=== PATIENT | male | born 1980 | race Caucasian/White ===

== ENCOUNTER 2017-03-26 14:03 | Observation (INO) | payer BC ==
[~2017-03-26] VITALS: Ht 170.2 cm; Wt 95.3 kg
[~2017-03-26 14:03] MED LIST: AVELOX400 MG OR; BACTRIM DS1 TAB PO; ERYTHROMYCIN O3.5 GM OD; IMODIUM A-D2 MG OR; LORTAB 5-325 MG1 TAB PO; LORTAB 5/3255 MG PO; NAPROSYN500 MG PO; NASONEX50 MCG/AC; PEPTO-BISM524 MG/30 OR; SULFACET SOD10 % OS
--- NOTE | 2017-03-26 14:16 | NUR ---
PT STATES HAS BEEN HAVING RIGHT SIDED CHEST PAIN UNDER RIGHT BREAST, MORE SO WITH DEEP BREATHING.
[2017-03-26 15:06] LABS: HEMATOCRIT 41.4 % (39.0-50.0); IMMATURE GRANULOCYTES 0.4 % (0.0-1.0); MEAN CELL VOLUME 84.3 fL CALC (80.0-100.0); MEAN CORPUSCULAR HGB 28.5 pG CALC (26.0-32.0); MEAN CORPUSCULAR HGB CONC 33.8 g/L CALC (32.0-36.0); NEUT# 18.62 thou/uL (1.82-7.42); RED BLOOD COUNT 4.91 mill/uL (4.70-6.10); RED CELL DISTRI WIDTH 12.2 % (11.5-15.5)
--- NOTE | 2017-03-26 15:10 | NUR ---
ADVISED OF CONTINUED WAIT TIME FOR LAB RESULTS. PT RESTING QUIETLY WITH FAMILY AT BEDSIDE.
[2017-03-26 15:27] LABS: ALBUMIN 4.4 g/dL (3.2-5.0); ALKALINE PHOSPHATASE 87 u/l (38-126); ANION GAP 17 (6-22 (CALC)); BILIRUBIN, TOTAL 0.6 mg/dL (0.0-1.4); BUN 10 mg/dL (9-20); BUN/CREATININE RATIO 17 (12-20 (CALC)); CALCIUM 9.5 mg/dL (8.4-10.2); CARBON DIOXIDE 29 mmol/l (22-30); CHLORIDE 97 mmol/l (95-108); CREATININE 0.6 mg/dL (0.7-1.3); GFR > 60 ML/MIN (>=60 (CALC)); GFR FOR AFR.AMER. > 60 ML/MIN (>=60 (CALC)); GLUCOSE 294 mg/dL (75-110); POTASSIUM 3.8 mmol/l (3.5-5.1); SGOT/AST 14 u/l (17-59); SGPT/ALT 28 u/l (21-72); SODIUM 139 mmol/l (137-146); TOTAL PROTEIN 9.3 g/dL (6.3-8.2)
[2017-03-26 15:37] LABS: MYOGLOBIN 15 ng/mL (0 - 121)
--- NOTE | 2017-03-26 16:01 | NUR ---
DR. JARAMILLO SPEAKING TO PT ABOUT POSSIBLE ADMISSION, DUE TO WBC OF 24.5, ORDERS FOR CTA OF CHEST TO CHECK FOR PE. PT TO CT SCAN PER STRETCHER.
--- NOTE | 2017-03-26 17:33 | NUR ---
PT SITTING UP IN BED, DENIES ANY SEVERE PAIN IN RIGHT RIB AREA, STATES A MAYBE 2-3 WITH DEEP BREATHING. ADVISED OF FOOD TRAY ORDERED.
--- NOTE | 2017-03-26 18:20 | NUR ---
PT REPORT CALLED TO [facility] CONTINUATION OF CARE. PT PLACED IN W/C AND TRANSPORTED UP TO ROOM ON MED SURG WITH TELEMENTRY
[2017-03-26 18:39] VITALS: BP 128/82
--- NOTE | 2017-03-26 18:40 | NUR ---
PT ARRIVED TO FLOOR VIA WHEELCHAIR ACCOMPANIED BY [facility]. PT AMBULATES INDEPENDENTLY. SOB W/ EXERTION NOTED. NON-PRODUCTIVE COUGH NOTED. PLAN OF CARE DISCUSSED. REPORTING OF CONCERNS ENCOURAGED. PT ORIENTED TO ROOM AND EQUIPMENT. CALL LIGHT REVIEWED AND IN REACH. PT STATES UNDERSTANDING.
[2017-03-26 20:07] VITALS: BP 118/81
--- NOTE | 2017-03-26 22:00 | NUR ---
RESTING IN SEMIFOWELRS WITH EYES CLOSED, RESPIRATIONS EVEN AND UNLABORED. IV FLUIDS INFUSING TO RAC WITH NO COMPLICATIONS. CALL LIGHT IN REACH.
[2017-03-26 23:32] VITALS: BP 112/73
--- NOTE | 2017-03-27 00:20 | NUR ---
RESTING IN SEMIFOWELRS WITH EYES CLOSED, RESPIRATIONS EVEN AND UNLABORED. IV FLUIDS INFUSING TO RAC WITH NO COMPLICATIONS. CALL LIGHT IN REACH.
--- NOTE | 2017-03-27 00:52 | NUR ---
SITTING ON SIDE OF BED, C/O PAIN TO RIGHT SIDE OF CHEST 5/10, "BETTER THAN IT WAS WHEN I CAME IN", MEDICATED WITH TYLENOL 650MG PO. ENCOURAGED TO USE CALL LIGHT FOR ASSISTANCE.
[2017-03-27 03:47] VITALS: BP 103/65
--- NOTE | 2017-03-27 05:20 | NUR ---
MORNING BLOOD WORK DRAWN BY CAR PAINTER, PT TOLERATED WELL. RESPIRATIONS EVEN AND UNLABORED.
[2017-03-27 05:59] LABS: HEMATOCRIT 35.4 % (39.0-50.0); IMMATURE GRANULOCYTES 0.4 % (0.0-1.0); MEAN CELL VOLUME 85.3 fL CALC (80.0-100.0); MEAN CORPUSCULAR HGB 28.9 pG CALC (26.0-32.0); MEAN CORPUSCULAR HGB CONC 33.9 g/L CALC (32.0-36.0); NEUT# 10.5 thou/uL (1.82-7.42); RED BLOOD COUNT 4.15 mill/uL (4.70-6.10); RED CELL DISTRI WIDTH 12.1 % (11.5-15.5)
[2017-03-27 06:19] LABS: ANION GAP 14 (6-22 (CALC)); BUN 8 mg/dL (9-20); BUN/CREATININE RATIO 15 (12-20 (CALC)); CALCIUM 8.7 mg/dL (8.4-10.2); CALCULATED LDLCHOLESTEROL 92 mg/dL (62-129 (CALC)); CARBON DIOXIDE 28 mmol/l (22-30); CHLORIDE 100 mmol/l (95-108); CREATININE 0.5 mg/dL (0.7-1.3); GFR > 60 ML/MIN (>=60 (CALC)); GFR FOR AFR.AMER. > 60 ML/MIN (>=60 (CALC)); GLUCOSE 279 mg/dL (75-110); HDL CHOLESTEROL 41 mg/dL (>=40); POTASSIUM 4.3 mmol/l (3.5-5.1); SODIUM 137 mmol/l (137-146); TOTAL CHOLESTEROL 153 mg/dl (0-199); TOTAL TRIGLYCERIDES 104 mg/dl (30-149); VLDL CHOLESTROL 21 mg/dl (5-56 (CALC))
[2017-03-27 07:28] VITALS: BP 100/69
--- NOTE | 2017-03-27 07:28 | NUR ---
BEDSIDE REPORT RECEIVED FROM HARSH JEFFREY. PT SITTING UPRIGHT IN BED. DENIES PAIN. REPORTING OF CONCERNS ENCOURAGED. PLAN OF CARE DISCUSSED. CALL LIGHT REVIEWED AND IN REACH. PT STATES UNDERSTANDING.
--- NOTE | 2017-03-27 08:17 | NUR ---
IS PROVIDED. PT INSTRUCTED ON USE AND INDICATION. PT OBTAINED 1000ML INCENTIVE VOLUME, GOAL OF 1500ML SET. WILL CONTINUE TO MONITOR.
--- NOTE | 2017-03-27 13:00 | NUR ---
DR. MEJIAS IN TO SEE PT. DISCHARGE DISCUSSED. PT STATES AGREEMENT WITH PLAN.
[2017-03-27] MEDS ORDERED: METFORMIN500 MG PO (13:50)
[2017-03-27] MEDS ORDERED: JANUVIA100 MG PO (13:50)
[2017-03-27] MEDS ORDERED: ROBITUSSIN AC10 ML PO (13:50)
[2017-03-27] MEDS ORDERED: IBUPROFEN600 MG PO (13:50)
[2017-03-27] MEDS ORDERED: LEVAQUIN750 MG PO (13:50)
--- NOTE | 2017-03-27 15:00 | NUR ---
NICOLE, WITH [facility] AT BEDSIDE. DISCUSSED [facility] FILLING PRESCRIPTIONS. REPORTS HE CAN NOT AFFORD TO LEGAL DOCUMENT SPECIALIST PRESCRIPTIONS UNTIL TOMORROW. PLAN MADE FOR PT. TO STAY UNTIL TODAYS MEDICATIONS HAVE BEEN ADMINISTERED. PT AGREES.
[2017-03-27 16:13] VITALS: BP 121/78
--- NOTE | 2017-03-27 17:47 | NUR ---
Discharge instructions given. Patient verbalizes understanding of same. Discharged in stable condition via Wheelchair to Home with family. All belongings sent with pt.
== END 2017-03-27 17:35 | disposition home or self-care (01) | DRG 195 ==
LOC: ENPENDDIS → ED 14:03 → ED-I 16:51 → ED 17:29 → MS2 17:30
PROVIDERS: Emergency Medicine; ADMIT Internal Medicine; ATTEND Internal Medicine
PROC: 3E0234Z Introduction of Serum, Toxoid and Vaccine into Muscle, Percutaneous Approach (ICD-10-PCS; principal; 2017-03-27)
DX: J18.9 Pneumonia, unspecified organism (principal); E11.9 Type 2 diabetes mellitus without complications; Z23 Encounter for immunization
CPT/HCPCS: G0378; Q9967